=== PATIENT | female | born 1990 | race Caucasian/White ===

== ENCOUNTER 2019-05-08 11:37 | Day surgery (SDC) | payer BC ==
[2019-05-06 14:33] LABS: BASOPHILS # (AUTO) 0.05 x10^3/uL (0-0.1); BASOPHILS % (AUTO) 1 % (0-1); EOSINOPHILS # (AUTO) 0.19 x10^3/uL (0-0.4); EOSINOPHILS % (AUTO) 3 % (1-7); LYMPHOCYTES # (AUTO) 2.07 x10^3/uL (1-3.4); LYMPHOCYTES % (AUTO) 26 % (22-44); MD NO; MEAN CORPUSCULAR HEMOGLOBIN 31.3 pg (27.0-34.8); MEAN CORPUSCULAR VOLUME 94.8 fL (80-100); MEAN PLATELET VOLUME 8.5 fL (7.4-10.4); MONOCYTES % (AUTO) 8 % (2-9); NEUTROPHILS # (AUTO) 4.99 x10^3/uL (1.8-6.8); NEUTROPHILS % (AUTO) 63 % (42-75); PLATELET COUNT 292 x10^3/uL (130-400); RED BLOOD COUNT 4.45 x10^6/uL (3.82-5.3); RED CELL DISTRIBUTION WIDTH 12.4 % (9.6-15.2)
[~2019-05-08] VITALS: Ht 175.3 cm; Wt 59.8 kg
[~2019-05-08 11:37] MED LIST: APREPITANT 40 MG CAPSULE ONE; MIDAZOLAM 1 MG/ML, 2ML ONE
[2019-05-08 12:01] VITALS: BP 114/74
[2019-05-08] MEDS ORDERED: LACTATED RINGERS 1,000 ML IV SCH (12:03)
[2019-05-08] MEDS ORDERED: APREPITANT 40 MG CAPSULE ONE ×2 (12:47→12:53)
[2019-05-08] MEDS ORDERED: BUPIVACAINE/PF 0.25% ONE (12:47)
[2019-05-08] MEDS ORDERED: MIDAZOLAM 1 MG/ML, 2ML ONE (12:47)
[2019-05-08] MEDS ORDERED: METHYLERGONOVINE 0.2 MG/ML IM ONE (12:47)
[2019-05-08] MEDS ORDERED: OXYTOCIN 10 UNITS/ML, 1ML ONE (12:47)
[2019-05-08] MEDS ORDERED: MISOPROSTOL 200 MCG TABLET ONE (12:47)
[2019-05-08] MEDS ORDERED: ONDANSETRON 2MG/ML, 2ML ONE (12:58)
[2019-05-08] MEDS ORDERED: DEXAMETHASONE 4 MG/ML, 1ML ONE (12:58)
[2019-05-08] MEDS ORDERED: KETOROLAC 30 MG/1 ML ONE (12:58)
[2019-05-08] MEDS ORDERED: PROPOFOL 10 MG/ML, 20ML ONE (12:58)
[2019-05-08] MEDS ORDERED: FENTANYL PF 100 MCG/2ML ONE (12:59)
[2019-05-08] MEDS ORDERED: MEPERIDINE/PF 25MG/0.5ML IVPush PRN (13:30)
[2019-05-08] MEDS ORDERED: FENTANYL PF 100 MCG/2ML IV PRN (13:30)
[2019-05-08] MEDS ORDERED: hydrALAzine 20 MG/ML, 1ML IV PRN (13:30)
[2019-05-08] MEDS ORDERED: PROMETHAZINE 25 MG/ML, 1ML IV PRN (13:30)
[2019-05-08] MEDS ORDERED: HALOPERIDOL 5 MG/ML IV PRN (13:30)
[2019-05-08] MEDS ORDERED: ACETAMINOPHEN 325 MG TABLET PO PRN (13:30)
[2019-05-08] MEDS ORDERED: OXYcodone 5 MG/5 ML ORAL.SOL UDC PO PRN (13:30)
[2019-05-08] MEDS ORDERED: HYDROmorphone 2 MG/ML, 1ML IVPush PRN (13:30)
== END 2019-05-08 16:00 | disposition home or self-care (01) ==
LOC: OUT 11:37
PROVIDERS: ATTEND Obstetrics & Gynecology
DX: O02.0 Blighted ovum and nonhydatidiform mole (principal); G43.909 Migraine, unspecified, not intractable, without status migrainosus; Z98.890 Other specified postprocedural states; Z79.899 Other long term (current) drug therapy
CPT/HCPCS: 36415; 59820; 85025; 88305; J1100; J1885; J2250; J2405; J2704; J3010; J7120; J8501; J3490; J2210; J2590